=== PATIENT | female | born 1955 | race Caucasian/White ===

== ENCOUNTER → 2016-12-30 | Outpatient (CLI) | payer BC ==
[~2016-12-30] MED LIST: ASPI81TA21 PO; ATEN-173 PO; MULT-506 PO; OMEG10007 PO
== END | disposition home or self-care (01) ==
LOC: C.PATHSPEC 16:15
PROVIDERS: ATTEND Dermatology
DX: L82.1 Other seborrheic keratosis (principal); C44.519 Basal cell carcinoma of skin of other part of trunk; D36.7 Benign neoplasm of other specified sites

== ENCOUNTER → 2017-01-25 | Outpatient (CLI) | payer BC | END | disposition home or self-care (01) | LOC: C.PATHSPEC 17:45 | PROVIDERS: ATTEND Plastic Surgery | DX: C44.519 Basal cell carcinoma of skin of other part of trunk (principal) ==

== ENCOUNTER → 2017-02-18 | Outpatient (CLI) | payer BC ==
[2017-02-18 13:39] LABS: BLOOD UREA NITROGEN 11 mg/dl (7-18); CREATININE 0.74 mg/dl (0.60-1.20); GLUCOSE 92 mg/dl (70-99)
[2017-02-18 13:40] LABS: BUN/CREATININE RATIO 14.9 (10-20); CALCIUM 9.1 mg/dl (8.5-10.1); CARBON DIOXIDE 31 mmol/L (21-32); CHLORIDE 109 mmol/L (98-107); POTASSIUM 4.1 mmol/L (3.5-5.1); SODIUM 143 mmol/L (136-145)
== END | disposition home or self-care (01) ==
LOC: C.LABPVFM 09:03
PROVIDERS: ATTEND Nurse Practitioner
DX: Z00.00 Encounter for general adult medical examination without abnormal findings (principal); M85.80 Other specified disorders of bone density and structure, unspecified site; R00.2 Palpitations

== ENCOUNTER → 2017-03-08 | Outpatient (CLI) | payer BC | END | disposition home or self-care (01) | LOC: C.MAMM 08:45 | PROVIDERS: ATTEND Nurse Practitioner | DX: M85.88 Other specified disorders of bone density and structure, other site (principal); Z78.0 Asymptomatic menopausal state ==

== ENCOUNTER → 2017-03-22 | Outpatient (CLI) | payer BC | END | disposition home or self-care (01) | LOC: C.PAPS 16:35 | PROVIDERS: ATTEND Obstetrics & Gynecology | DX: Z01.419 Encounter for gynecological examination (general) (routine) without abnormal findings (principal) ==

== ENCOUNTER → 2017-03-30 | Outpatient (CLI) | payer BC | END | disposition home or self-care (01) | LOC: C.LABPVFM 10:47 | PROVIDERS: ATTEND Psychiatry & Neurology Neurology | DX: G25.81 Restless legs syndrome (principal) ==

== ENCOUNTER → 2017-07-20 | Outpatient (CLI) | payer BC ==
--- NOTE | 2017-07-21 07:36 | MAMMOGRAPHY REPORT ---
BILATERAL DIGITAL SCREENING MAMMOGRAM TOMOSYNTHESIS WITH CAD: 07/20/2017 CLINICAL HISTORY: Routine screening. Patient has no complaints. TECHNIQUE: Breast tomosynthesis in addition to standard 2D mammography was performed. Current study was also evaluated with a Computer Aided Detection (CAD) system. COMPARISON: Comparison is made to exams dated: 04/23/2016 mammogram, 02/06/2015 mammogram, 01/31/2014 ma mmogram, 06/08/2012 mammogram, 05/28/2010 mammogram - [facility], and 05/01/2009. BREAST COMPOSITION: There are scattered areas of fibroglandular density in both breasts. FINDINGS: The parenchymal pattern is unchanged. No developing mass, architectural distortion or clus ter of suspicious microcalcifications is seen in either breast. IMPRESSION: ACR BI-RADS CATEGORY 2: BENIGN There is no mammographic evidence of malignancy. A 1 year screening mammogram is recommended. The pa tient will receive written notification of the results. Approximately 10% of breast cancers are not detected with mammography. A negative mammographic report should not delay biopsy if a clinically suggestive mass is present. Charlene Tobias M.D. ay/:07/20/2017 17:20:37 Level Vial Setter: Casi Munroe M, [facility] letter sent: Normal 1/2 BI-RADS Code: ACR BI-RADS Category 2: Benign
== END | disposition home or self-care (01) ==
LOC: C.MAMM 13:48
PROVIDERS: ATTEND Nurse Practitioner
DX: Z12.31 Encounter for screening mammogram for malignant neoplasm of breast (principal)

== ENCOUNTER → 2017-07-26 | Outpatient (CLI) | payer BC ==
[2017-07-26 14:14] LABS: BLOOD UREA NITROGEN 11 mg/dl (7-18); BUN/CREATININE RATIO 14.9 (10-20); CALCIUM 8.9 mg/dl (8.5-10.1); CARBON DIOXIDE 28 mmol/L (21-32); CHLORIDE 108 mmol/L (98-107); CHOLESTEROL 179 mg/dl (0-200); CREATININE 0.77 mg/dl (0.60-1.20); GLUCOSE 86 mg/dl (70-99); SODIUM 142 mmol/L (136-145)
[2017-07-26 14:17] LABS: CHOLESTEROL/HDL RATIO 2.9; HDL CHOLESTEROL 62 mg/dl; LDL CHOLESTEROL CALCULATED 107 mg/dl; TRIGLYCERIDES 49 mg/dl (0-150); VERY LOW DENSITY LIPOPROT CALC 10 mg/dl
== END | disposition home or self-care (01) ==
LOC: C.LABPVFM 07:52
PROVIDERS: ATTEND Nurse Practitioner
DX: E78.00 Pure hypercholesterolemia, unspecified (principal); M85.80 Other specified disorders of bone density and structure, unspecified site; I51.7 Cardiomegaly

== ENCOUNTER 2017-09-04 17:46 | Emergency (ER) | payer BC ==
[~2017-09-04] VITALS: Ht 170.2 cm; Wt 57.6 kg
[~2017-09-04 17:46] MED LIST changes: -ATEN-173 PO; -MULT-506 PO
[2017-09-04 17:53] VITALS: TEMP 37; Ht 170.2 cm; Wt 57.6 kg
--- NOTE | 2017-09-04 18:05 | EMERGENCY ROOM VISIT NOTE ---
History Report prepared by Davonibmike: Sonal Barth Under the Supervision of: Dr. Miguel Jenkins M.D. First contact with patient: 17:56 Chief Complaint: ABDOMINAL PAIN Stated Complaint: ABNORMAL EKG History of Present Illness The patient is a 62 year old female who presents to the Emergency Room with complaints of worsening left sided abdominal pain for the past 10 days. The pain does not radiate anywhere. She states the pain is usually worse after eating and feels like "indigestion". She has also experienced increased gas and admits to a recent change in her bowels. She denies any melena or hematochezia. The patient notes she had a checkup with her PCP on August 23 but nothing abnormal was found. She still has her gallbladder and appendix. She denies any recent falls or trauma. She does not drink alcohol or smoke cigarettes. She states she does occasionally feel dizzy. This evening she went to a local [facility] and had an EKG, which she was told was abnormal and she was referred here to the ED. The patient denies any recent fevers, cough, chest pain, shortness of breath, nausea, vomiting or diarrhea. Source of History: patient Onset: 10 days [employer] M[employer] Position: abdomen Timing: worsening Modifying Factors (Worsening): eating Associated Symptoms: No fevers, No cough, No chest pain, No SOB, No nausea, No vomiting, No diarrhea Review of Systems See HPI for pertinent positives & negatives. A total of 10 systems reviewed and were otherwise negative. Past Medical & Surgical Medical Problems: (1) Asthma (2) Complicated migraine Old medical records were reviewed. Nurse's notes were reviewed and I agree with. Social History Smoking Status: Never Smoker Smokeless Tobacco Use: No Alcohol Use: none Drug Use: none Marital Status: Housing Status: lives with family Occupation Status: retired Current/Historical Medications Scheduled Aspirin (Aspirin Ec), 81 MG PO TODAY Aspirin Enteric Coated (Ecotrin Or Generic), 81 MG PO DAILY Atenolol (Tenormin), 12.5 MG PO DAILY Cholecalciferol (Vitamin D 1000 Unit), 1,000 INTER.UNIT PO DAILY Cod Liver Oil (Cod Liver Oil), 5 ML PO DAILY Cyclosporine (Ophth) (Restasis), 1 DROP OP BID Multivitamin (Multivitamin), 1 TAB PO DAILY [Eufflexa], 1 PUFF INH PRN Allergies Coded Allergies: No Known Allergies (Unverified , UNKNOWN, 10/05/12) Physical Exam Vital Signs Date Time Temp Pulse Resp B/P (MAP) Pulse Ox O2 Delivery O2 Flow Rate FiO2 09/04/17 20:52 82 14 121/76 98 Room Air 09/04/17 19:33 64 14 121/72 99 Room Air 09/04/17 17:53 37.0 86 20 155/98 99 Room Air Physical Exam General: Well developed well nourished, non-ill appearing middle aged female, in no acute distress, breathing comfortably on room air. Normal speech HEENT: Normal cephalic atraumatic. Pupils are equal round and reactive to light. Extraocular movements are intact. Oropharynx is pink with moist mucous membranes. No swelling of the mouth lips or tongue. Neck: Supple with a midline trachea. No meningeal signs or stiffness, no JVD or bruits. No Stridor. Chest: Clear to auscultation bilaterally. No wheezes or rhonchi. No increased work of breathing. Heart: regular rate and rhythm. Abdomen: Soft, minimally tender in epigastric area, nondistended without rebound guarding or rigidity. Extremities: No cyanosis clubbing or edema. No calf tenderness or assymetry Spine/Back. Non tender to palpation. No CVA tenderness Skin: Good turgor without rashes. Neurologic exam: Cranial nerves two through 12 are intact. Motor and sensation are intact and symmetrical throughout. Medical Decision & Procedures ER Provider Diagnostic Interpretation: Radiology results as stated below per my review and radiologist interpretation: SINGLE VIEW CHEST CLINICAL HISTORY: Atypical chest pain. FINDINGS: An AP, portable, upright chest radiograph is compared to study dated 08/21/2015. The examination is degraded by portable technique and patient rotation. The cardiomediastinal silhouette is unremarkable. The lungs and pleural spaces are clear. No pneumothorax is seen. The skeletal structures are osteopenic. The bony thorax is grossly intact. There is mild S-shaped thoracolumbar scoliosis. IMPRESSION: No active disease in the chest. Electronically signed by: Mitesh Camarillo M.D. 09/04/2017 6:30 PM Laboratory Results 09/04/17 18:30 Red Blood Count 4.31, Mean Corpuscular Volume 97.0, Mean Corpuscular Hemoglobin 33.4, Mean Corpuscular Hemoglobin Concent 34.4, Mean Platelet Volume 10.6, Neutrophils (%) (Auto) 64.8, Lymphocytes (%) (Auto) 24.2, Monocytes (%) (Auto) 10.2, Eosinophils (%) (Auto) 0.2, Basophils (%) (Auto) 0.4, Neutrophils # (Auto ) 3.16, Lymphocytes # (Auto) 1.18, Monocytes # (Auto) 0.50, Eosinophils # (Auto ) 0.01, Basophils # (Auto) 0.02 09/04/17 18:30 Test 09/04/17 18:30 09/04/17 18:36 White Blood Count 4.88 K/uL (4.8-10.8) Red Blood Count 4.31 M/uL (4.2-5.4) Hemoglobin 14.4 g/dL (12.0-16.0) Hematocrit 41.8 % (37-47) Mean Corpuscular Volume 97.0 fL (80-100) Mean Corpuscular Hemoglobin 33.4 pg (25-34) Mean Corpuscular Hemoglobin Concent 34.4 g/dl (32-36) Platelet Count 182 K/uL (130-400) Mean Platelet Volume 10.6 fL (7.4-10.4) Neutrophils (%) (Auto) 64.8 % Lymphocytes (%) (Auto) 24.2 % Monocytes (%) (Auto) 10.2 % Eosinophils (%) (Auto) 0.2 % Basophils (%) (Auto) 0.4 % Neutrophils # (Auto) 3.16 K/uL (1.4-6.5) Lymphocytes # (Auto) 1.18 K/uL (1.2-3.4) Monocytes # (Auto) 0.50 K/uL (0.11-0.59) Eosinophils # (Auto) 0.01 K/uL (0-0.5) Basophils # (Auto) 0.02 K/uL (0-0.2) RDW Standard Deviation 45.4 fL (36.4-46.3) RDW Coefficient of Variation 12.8 % (11.5-14.5) Immature Granulocyte % (Auto) 0.2 % Immature Granulocyte # (Auto) 0.01 K/uL (0.00-0.02) Anion Gap 9.0 mmol/L (3-11) Est Creatinine Clear Calc Drug Dose 70.7 ml/min Estimated GFR () 99.0 Estimated GFR (Non- 85.4 BUN/Creatinine Ratio 11.3 (10-20) Calcium Level 9.0 mg/dl (8.5-10.1) Total Bilirubin 0.6 mg/dl (0.2-1) Direct Bilirubin 0.2 mg/dl (0-0.2) Aspartate Amino Transf (AST/SGOT) 25 U/L (15-37) Alanine Aminotransferase (ALT/SGPT) 28 U/L (12-78) Alkaline Phosphatase 83 U/L (45-117) Total Creatine Kinase 118 U/L (26-192) Creatine Kinase MB 1.8 ng/ml (0.5-3.6) Creatine Kinase MB Ratio 1.5 (0-3.0) Total Protein 7.2 gm/dl (6.4-8.2) Albumin 3.9 gm/dl (3.4-5.0) Lipase 177 U/L (73-393) Bedside Troponin I < 0.030 ng/ml (0-0.045) Laboratory studies as stated above per my review. ECG Indication: abdominal pain Rate (beats per minute): 66 Rhythm: normal sinus Findings: no acute ischemic change, no ectopy Change: no significant change (No change from EKG on 08/20/2009) Change: EKG was interpreted by me. EKG pre-hospital is normal sinus rhythm, rate of 75, no acute ischemia, no ectopy. ED Course 1756: Past medical records reviewed. The patient was evaluated in room B3, and a complete history and physical examination were performed. 1851: I reevaluated the patient. She is waiting to go to ultrasound but resting comfortably. 1939: I reevaluated the patient. She is still awaiting ultrasound. 2024: I reevaluated the patient. She is currently in ultrasound. 2099: I reevaluated the patient. She is feeling well and resting comfortably. I discussed her results and discharge instructions and she verbalized complete understanding and agreement. Medical Decision The differential diagnoses considered include cardiac disease, pancreatitis and electrolyte or metabolic abnormality. This patient comes in as described above. She was placed in room B3. She is here for treatment and evaluation of intermittent abdominal/epigastric pain. [facility] and they're concerned that she could have EKG abnormality. I looked at her EKG and I do not see any abnormality. Her symptoms do not sound likely cardiac they been going on for several weeks and occur after eating. She appears in no distress. IV access established. EKG, chest x-ray ,and multiple blood tests was obtained as well as gallbladder ultrasound. She was reassessed frequently. She has remained stable. Her EKG was unremarkable here as well. No ischemic changes or ectopy. Her cardiac biomarkers are negative and in a setting of having symptoms for several weeks makes cardiac disease highly unlikely particularly when her symptoms are very atypical. She has no fever or white count to suggest infection. She has nothing to suggest a diabetic emergency. She has no acute electrolyte or metabolic abnormalities. She has nothing to suggest liver or gallbladder or pancreas disease. Ultrasound was obtained and was unremarkable. Her symptoms may be related to her stomach. It's worse after she eats. At this point she has nothing to suggest that this is likely ischemic colitis. She will rest and have a mild diet. Use [id number] Zantac 150 mg twice a day. I encouraged her to follow-up with her doctor Wednesday for recheck she will likely need further workup including possibly an endoscopy or potential HIDA scan. The patient and her son were happy with the plan she was discharged to home. Medication Reconcilliation Current Medication List: was personally reviewed by me Blood Pressure Screening Patient's blood pressure: Normal blood pressure Blood pressure disposition: Did not require urgent referral Impression Primary Impression: Epigastric abdominal pain Scribe Attestation The scribe's documentation has been prepared under my direction and personally reviewed by me in its entirety. I confirm that the note above accurately reflects all work, treatment, procedures, and medical decision making performed by me. Departure Information Dispostion Home / Self-Care Referrals Meme Jeronimo C.R.N.P (PCP) Patient Instructions [facility]
--- NOTE | 2017-09-04 18:31 | DIAGNOSTIC IMAGING REPORT ---
SINGLE VIEW CHEST CLINICAL HISTORY: Atypical chest pain. FINDINGS: An AP, portable, upright chest radiograph is compared to study dated 08/21/2015. The examination is degraded by portable technique and patient rotation. The cardiomediastinal silhouette is unremarkable. The lungs and pleural spaces are clear. No pneumothorax is seen. The skeletal structures are osteopenic. The bony thorax is grossly intact. There is mild S-shaped thoracolumbar scoliosis. IMPRESSION: No active disease in the chest. Electronically signed by: Mitesh Camarillo M.D. 09/04/2017 6:30 PM Dictated Date/Time: 09/04/2017 6:29 PM
[2017-09-04] MEDS ORDERED: MULT-506 PO (18:38)
[2017-09-04] MEDS ORDERED: ATEN-173 PO (18:38)
[2017-09-04] MEDS ORDERED: COD1OIL4 PO (18:41)
[2017-09-04] MEDS ORDERED: CYCL0.052 OP (18:41)
[2017-09-04] MEDS ORDERED: ASPI81TA28 PO (18:41)
[2017-09-04] MEDS ORDERED: [UNRECOGNIZED DRUG - OTHER] INH (18:41)
[2017-09-04] MEDS ORDERED: CHOL100027 PO (18:41)
[2017-09-04 18:49] LABS: BASO % 0.4 %; BASO ABS # 0.02 K/uL (0-0.2); EOS % 0.2 %; EOS ABS # 0.01 K/uL (0-0.5); HEMATOCRIT 41.8 % (37-47); HEMOGLOBIN 14.4 g/dL (12.0-16.0); IG# 0.01 K/uL (0.00-0.02); LYMPH % 24.2 %; LYMPH ABS # 1.18 K/uL (1.2-3.4); MEAN CORPUSCULAR HEMOGLOBIN 33.4 pg (25-34); MEAN CORPUSCULAR HGB CONC 34.4 g/dl (32-36); MEAN PLATELET VOLUME 10.6 fL (7.4-10.4); MONO % 10.2 %; NEUT % 64.8 %; NEUT ABS # 3.16 K/uL (1.4-6.5); PLATELET COUNT 182 K/uL (130-400); RED CELL DISTRIBUTION WIDTH CV 12.8 % (11.5-14.5); RED CELL DISTRIBUTION WIDTH SD 45.4 fL (36.4-46.3); WHITE BLOOD COUNT 4.88 K/uL (4.8-10.8)
[2017-09-04 19:20] LABS: POTASSIUM 3.6 mmol/L (3.5-5.1)
[2017-09-04 19:21] LABS: ALBUMIN 3.9 gm/dl (3.4-5.0); CKMB 1.8 ng/ml (0.5-3.6); CREATININE 0.75 mg/dl (0.60-1.20); TOTAL PROTEIN 7.2 gm/dl (6.4-8.2)
--- NOTE | 2017-09-04 20:40 | DIAGNOSTIC IMAGING REPORT ---
ULTRASOUND RIGHT UPPER QUADRANT ABDOMEN CLINICAL HISTORY: Right upper quadrant abdominal pain. COMPARISON STUDY: No priors. TECHNIQUE: Real-time, grayscale, and color flow sonography of the right upper quadrant of the abdomen was performed. Images are reviewed in the transverse and longitudinal planes. FINDINGS: Liver: The liver is normal in size and echotexture. There is no intrahepatic biliary ductal dilatation. The main portal vein is patent. Gallbladder: The gallbladder is normal in appearance. No gallstones are identified. There is no gallbladder wall thickening or pericholecystic fluid. A sonographic Rhodes's sign is reportedly absent. The common bile duct measures up to 0.6 cm in diameter. Pancreas: Visualized portions of the pancreatic head and body are normal in appearance. The splenic vein is patent. Right kidney: Survey images of the right kidney demonstrate normal size and echotexture. There is no hydronephrosis. Ascites: None. IMPRESSION: Unremarkable sonographic assessment of the right upper quadrant. No gallstones are identified. Electronically signed by: Mitesh Camarillo M.D. 09/04/2017 8:39 PM Dictated Date/Time: 09/04/2017 8:38 PM
[2017-09-04 21:18] VITALS: BP 103/72; PULSE 66; O2SAT 99
== END 2017-09-04 21:15 | disposition home or self-care (01) ==
LOC: C.EDB 17:46
DX: R10.13 Epigastric pain (principal); R94.31 Abnormal electrocardiogram [ECG] [EKG]; Z79.82 Long term (current) use of aspirin

== ENCOUNTER → 2017-09-27 | Outpatient (CLI) | payer BC ==
[~2017-09-27] MED LIST changes: +ASPI81TA28 PO; +ATEN-173 PO; +CHOL100027 PO; +COD1OIL4 PO; +CYCL0.052 OP; +MULT-506 PO; -OMEG10007 PO; +[UNRECOGNIZED DRUG - OTHER] INH
--- NOTE | 2017-09-27 15:25 | DIAGNOSTIC IMAGING REPORT ---
ABD/PELVIS NO IV OR ORAL CONT CT DOSE: 232.16 mGy.cm HISTORY: Left flank pain R10.13 Abdominal pain, [id number] Abdominal pain, LLQ (lef TECHNIQUE: Multiaxial CT images of the abdomen and pelvis were performed without contrast. A dose lowering technique was utilized adhering to the principles of ALARA. COMPARISON STUDY: None. FINDINGS: Extremely difficult study to interpret due to the absence of contrast enhancement. Lung bases are clear. Overall configuration of liver is unremarkable. 1 cm cyst peripheral right hepatic lobe. Spleen is unremarkable. Kidneys are negative for calcification or hydronephrosis. The bowel pattern overall is nonobstructive. No significant free fluid within the pelvic cul-de-sac. The bladder is midline. IMPRESSION: No acute process of the abdomen or pelvis within limitations of an complete absence of contrast enhancement. The above report was generated using voice recognition software. It may contain grammatical, syntax or spelling errors. Electronically signed by: Segundo Agee M.D. 09/27/2017 3:24 PM Dictated Date/Time: 09/27/2017 3:21 PM
== END | disposition home or self-care (01) ==
LOC: C.CTS 15:04
PROVIDERS: ATTEND Nurse Practitioner
DX: R10.13 Epigastric pain (principal); R10.32 Left lower quadrant pain

== ENCOUNTER → 2017-10-11 | Outpatient (CLI) | payer BC ==
[~2017-10-11] MED LIST changes: -ASPI81TA28 PO; +DICY10CA55 PO; +PRLSR20 PO; -[UNRECOGNIZED DRUG - OTHER] INH
[2017-10-11 18:12] LABS: BLOOD UREA NITROGEN 9 mg/dl (7-18); CALCIUM 9.2 mg/dl (8.5-10.1); CARBON DIOXIDE 28 mmol/L (21-32); CREATININE 0.86 mg/dl (0.60-1.20); GLUCOSE 109 mg/dl (70-99); POTASSIUM 3.9 mmol/L (3.5-5.1); SODIUM 140 mmol/L (136-145)
== END | disposition home or self-care (01) ==
LOC: C.LABPVFM 13:28
PROVIDERS: ATTEND Nurse Practitioner
DX: R19.7 Diarrhea, unspecified (principal); R63.4 Abnormal weight loss; E87.6 Hypokalemia

== ENCOUNTER → 2017-11-04 | Outpatient (CLI) | payer BC ==
[~2017-11-04] MED LIST changes: -DICY10CA55 PO; +SINCALIDE INJ 1.1 MCG in SODIUM CHLORIDE 0.9% 100ML 100 ML IV ONE
--- NOTE | 2017-11-04 13:15 | DIAGNOSTIC IMAGING REPORT ---
HEPATOBILIARY EF IMAGING CLINICAL HISTORY: 62 years-old Female presenting with EPIGASTRIC PAIN. TECHNIQUE: Dynamic imaging of the gallbladder was initiated 65 minutes after administration of 5.4 mCi of technetium 99m Choletec. Imaging was obtained every 5 minutes over a span of 40 minutes. 1.1 mcg of sincalide was injected 5 minutes prior to the start of imaging. The gallbladder ejection fraction was calculated. COMPARISON: CT from 09/27/2017 and ultrasound from 09/04/2017. FINDINGS: Hepatobiliary scan demonstrates normal radiotracer uptake by the liver and normal excretion into the common duct and gallbladder. Expected radiotracer activity within small bowel indicates an unobstructed common duct. The gallbladder subsequently demonstrates normal contraction with decreased radiotracer activity. Gallbladder ejection fraction measures 96%. Reference range: Unequivocally normal: Greater than 50% Unequivocally abnormal: Less than 35% IMPRESSION: 1. Normal gallbladder ejection fraction. No evidence of chronic cholecystitis. Electronically signed by: Kaushik Triplett M.D. 11/04/2017 1:14 PM Dictated Date/Time: 11/04/2017 1:13 PM
== END | disposition home or self-care (01) ==
LOC: C.NUCL 10:34
PROVIDERS: ATTEND Internal Medicine Gastroenterology
DX: R10.13 Epigastric pain (principal)